=== PATIENT | female | born 1945 | race Caucasian/White ===

== ENCOUNTER → 2018-07-04 12:45 | Outpatient (CLI) | payer MEDICARE, OTHER | END | disposition home or self-care (01) | LOC: D.MRI 12:45 | DX: M54.16 Radiculopathy, lumbar region (principal) ==

== ENCOUNTER 2018-10-20 10:26 | Inpatient (IN) | payer MEDICARE, OTHER ==
[~2018-10-20] VITALS: Ht 157.5 cm; Wt 90.7 kg
--- NOTE | ~2018-10-20 | MORECARE ---
CASE MANAGEMENT DISCHARGE SUMMARY PATIENT: BELKYS MATA UNIT: [id number] ADM DATE: 10/20/18 AGE: 73 : 43 SEX: F ROOM/BED: D.2103 AUTHOR: KIRSTIE BROWN PHYSICIAN: REFERRING PHYSICIAN: MORGAN CACERES MD DATE OF SERVICE: 10/21/18 Discharge Plan Patient Name: BELKYS MATA [facility] [facility] 1945 Planned Disposition: Home Anticipated Discharge Date: 10/22/18 Discharge Date: Expected LOS: 2 Initial Reviewer: [email or web address] Initial Review Date: 10/21/2018 Generated: 10/21/18 5:36 pm Patient Name: BELKYS MATA Page 14440 at 1636 All edits/amendments must be made on the electronic document DICTATION DATE: 10/21/181635 SAT TUTOR: GAURANG 10/21/18 1636 RPT#: [id number] DC DATE: STATUS: ADM IN [facility] [address] [place] [address] END OF REPORT
--- NOTE | ~2018-10-20 | MORECARE ---
CASE MANAGEMENT DISCHARGE SUMMARY PATIENT: BELKYS MATA UNIT: [id number] ADM DATE: 10/20/18 AGE: 73 : 43 SEX: F ROOM/BED: D.2103 AUTHOR: KIRSTIE BROWN PHYSICIAN: REFERRING PHYSICIAN: MORGAN CACERES MD DATE OF SERVICE: 10/21/18 Discharge Plan Patient Name: BELKYS MATA [facility] [facility] 1945 Planned Disposition: Home Anticipated Discharge Date: 10/22/18 Discharge Date: Expected LOS: 2 Initial Reviewer: [email or web address] Initial Review Date: 10/21/2018 Generated: 10/21/18 5:45 pm DCPIA - Discharge Planning Initial Assessment Updated by [email or web address]: Shankar Dave on 10/21/18 4:40 pm * Is the patient Alert and Oriented? Yes * How many steps to enter\exit or inside your home? 4 W/RAIL * PCP DR. CACERES * Pharmacy [facility] * Preadmission Environment Home Alone * ADLs Independent * Equipment Glucometer Other * Other Equipment DIABETIC SHOES PROVIDER: [employer] * List name and contact numbers for known caregivers / representatives who currently or will assist patient after discharge: JUAQUIN GARZA, DTR, * Verbal permission to speak to the caregivers and representatives has been obtained from the patient. Yes * Please name any agencies selected above. NONE * Additional services required to return to the preadmission environment? No * Can the patient safely return to the preadmission environment? Yes * Has this patient been hospitalized within the prior 30 days at any hospital? No Last DP export: 10/21/18 3:36 Patient Name: BELKYS MATA Page [id number] at 1645 All edits/amendments must be made on the electronic document DICTATION DATE: 10/21/181643 GROCERY SHOPPER: GAURANG 10/21/181643 RPT#: [id number] DC DATE: STATUS: ADM IN [facility] [address] [place] [address] END OF REPORT
--- NOTE | ~2018-10-20 | MORECARE ---
CASE MANAGEMENT DISCHARGE SUMMARY PATIENT: BELKYS MATA UNIT: [id number] ADM DATE: 10/21/18 AGE: 73 : 43 SEX: F ROOM/BED: D.2107 AUTHOR: KEVINDOC PHYSICIAN: REFERRING PHYSICIAN: MORGAN CACERES MD DATE OF SERVICE: 10/23/18 Discharge Plan Patient Name: BELKYS MATA Facility[facility]:[place] : 1945 Planned Disposition: Home Anticipated Discharge Date: 10/22/18 Discharge Date: 10/22/2018 Expected LOS: 1 Initial Reviewer: [email or web address] Initial Review Date: 10/21/2018 Generated: 10/23/18 11:00 am Comments DCP- Discharge Planning Updated by [email or web address]: Shankar Dave on 10/21/18 3:[address] Patient Name: BELKYS MATA Admission Status: ER Accout number: [id number] Admission Date: 10-20-2018 : 1945 Admission Diagnosis: Attending: MORGAN HAUSER Current LOS: 1 Anticipated DC Date: 10-22-2018 Planned Disposition: Home Primary Insurance: MEDICARE A & B Discharge Planning Comments: CM RECEIVED REQUEST TO MEET WITH PT AT HER REQUEST REGARING POSSIBLE HOME HEALTH. CM MET WITH PT AND DAUGHTERJUAQUIN, IN ROOM TO DISCUSS DISCHARGE PLANNING AND NEEDS. BELKYS MATA provided verbal consent to discuss current and ongoing needs with/in the presence of: DAUGHTERJUAQUIN. PT REPORTS LIVING AT HOME INDEPENDENTLY AND ALONE. PT HAS GLUCOMETER AND DIABETIC SHOES FROM [employer]. PT HAS NO OUTSIDE SERVICES ASSISTING IN THE HOME. PT'S DAUGHTER ASSISTS WITH TRANSPORTATION AND ERRANDS AND ALSO NEEDED IF PT NEEDS ASSISTANCE AT HOME. PT IS VISUALLY IMPAIRED AND LEGALLY BLIND. PT'S DAUGHTER HAS CONTACTED THE [employer] AND THERE ARE NO SERVICES FOR PT AT HOME. PT AND DAUGHTER ARE LOOKING FOR PERSONAL CARE TO ASSIST WITH LAUNDRY AND DISHES. CM EXPLAINED THAT MEDICARE DOES NOT PAY FOR HOME PERSONAL CARE SERVICES, DISCUSSED MEDICAID ELIGIBILITY AND HOW TO APPLY FOR MEDICAID SERVICES AND THE 45 DAY ESTIMATED PROCESSING TIME FOR DETERMINATION. CM DISCUSSED AVAILABILITY OF HOME HEALTH, REHAB SERVICES AND MEDICAL EQUIPMENT. PT DENIES DISCHARGE NEEDS AND REPORTS SHE DOES NOT NEED ASSISTANCE WITH MEDICATIONS, THERAPY OR AN AIDE TO ASSIST WITH BATHING. PT DOES NOT HAVE A [facility] CARE POLICY TO ASSIST WITH PAYING FOR HOME SERVICES, REPORTS HAVING LIMITED [facility] INCOME. CM PROVIDED PT AND HER DAUGHTER WITH REFERRAL TO "[facility]" [employer] AND PERSONAL CARE PROVIDER INFORMATION FOR [facility]. CM DISCUSSED IMPORTANTANCE OF [facility] CARE PLANNING TO PT SHE LIVES ALONE, [place], IS LEGALLY BLIND AND GETTING OLDER. PT REPORTS UNDERSTANDING. PT REPORTS HER DAUGHTER WILL PICK HER UP FOR DISCHARGE HOME. PT DENIES NEED OF HOME HEALTH SERVICES, IS SEEKING PERSONAL CARE SERVICES, PERSONAL CARE AGENCY INFORMATION PROVIDED. PT PLANS TO DISCHARGE HOME ALONE. FAMILY TO TRANSPORT HOME. CM TO FOLLOW AND ASSIST IF NEEDED. Head Track Coach: Shankar Dave DCPIA - Discharge Planning Initial Assessment Updated by [email or web address]: Shankar Dave on 10/21/18 4:40 pm * Is the patient Alert and Oriented? Yes * How many steps to enter\\exit or inside your home? 4 W/RAIL * PCP DR. CACERES * Pharmacy [facility] * Preadmission Environment Home Alone * ADLs Independent * Equipment Glucometer Other * Other Equipment DIABETIC SHOES PROVIDER: [employer] * List name and contact numbers for known caregivers / representatives who currently or will assist patient after discharge: JUAQUIN GARZA, DTR, * Verbal permission to speak to the caregivers and representatives has been obtained from the patient. Yes * Please name any agencies selected above. NONE * Additional services required to return to the preadmission environment? No * Can the patient safely return to the preadmission environment? Yes * Has this patient been hospitalized within the prior 30 days at any hospital? No Last DP export: 10/21/18 3:53 Patient Name: BELKYS MATA Page [id number] at 1000 All edits/amendments must be made on the electronic document DICTATION DATE: 10/23/18958 BAND SAW MARKER: GAURANG 10/23/18958 RPT#: [id number] DC DATE:10/22/18 STATUS: DIS IN [facility] [address] [facility] [place] [address] END OF REPORT
--- NOTE | ~2018-10-20 | MORECARE ---
CASE MANAGEMENT DISCHARGE SUMMARY PATIENT: BELKYS MATA UNIT: [id number] ADM DATE: 10/20/18 AGE: 73 : 43 SEX: F ROOM/BED: D.2107 AUTHOR: KIRSTIE BROWN PHYSICIAN: REFERRING PHYSICIAN: MORGAN CACERES MD DATE OF SERVICE: 10/21/18 Discharge Plan Patient Name: BELKYS MATA Facility: [facility]:[place] : 1945 Planned Disposition: Home Anticipated Discharge Date: 10/22/18 Discharge Date: Expected LOS: 2 Initial Reviewer: [email or web address] Initial Review Date: 10/21/2018 Generated: 10/21/18 5:53 pm Comments DCP- Discharge Planning Updated by [email or web address]: Shankar Dave on 10/21/18 3:[address] Patient Name: BELKYS MATA Admission Status: ER Accout number: [id number] Admission Date: 10-20-2018 : 1945 Admission Diagnosis: Attending: MORGAN HAUSER Current LOS: 1 Anticipated DC Date: 10-22-2018 Planned Disposition: Home Primary Insurance: MEDICARE A & B Discharge Planning Comments: CM RECEIVED REQUEST TO MEET WITH PT AT HER REQUEST REGARING POSSIBLE HOME HEALTH. CM MET WITH PT AND DAUGHTER, JUAQUIN, IN ROOM TO DISCUSS DISCHARGE PLANNING AND NEEDS. BELKYS MATA provided verbal consent to discuss current and ongoing needs with/in the presence of: DAUGHTERJUAQUIN. PT REPORTS LIVING AT HOME INDEPENDENTLY AND ALONE. PT HAS GLUCOMETER AND DIABETIC SHOES FROM [employer]. PT HAS NO OUTSIDE SERVICES ASSISTING IN THE HOME. PT'S DAUGHTER ASSISTS WITH TRANSPORTATION AND ERRANDS AND ALSO NEEDED IF PT NEEDS ASSISTANCE AT HOME. PT IS VISUALLY IMPAIRED AND LEGALLY BLIND. PT'S DAUGHTER HAS CONTACTED THE STATE [employer]ENC[employer] THE BLIND AND THERE ARE NO SERVICES FOR PT AT HOME. PT AND DAUGHTER ARE LOOKING FOR PERSONAL CARE TO ASSIST WITH LAUNDRY AND DISHES. CM EXPLAINED THAT MEDICARE DOES NOT PAY FOR HOME PERSONAL CARE SERVICES, DISCUSSED MEDICAID ELIGIBILITY AND HOW TO APPLY FOR MEDICAID SERVICES AND THE 45 DAY ESTIMATED PROCESSING TIME FOR DETERMINATION. CM DISCUSSED AVAILABILITY OF HOME HEALTH, REHAB SERVICES AND MEDICAL EQUIPMENT. PT DENIES DISCHARGE NEEDS AND REPORTS SHE DOES NOT NEED ASSISTANCE WITH MEDICATIONS, THERAPY OR AN AIDE TO ASSIST WITH BATHING. PT DOES NOT HAVE A [facility] CARE POLICY TO ASSIST WITH PAYING FOR HOME SERVICES, REPORTS HAVING LIMITED ASSISTED INCOME. CM PROVIDED PT AND HER DAUGHTER WITH REFERRAL TO "[facility]" [employer] AND PERSONAL CARE PROVIDER INFORMATION FOR [facility]. CM DISCUSSED IMPORTANTANCE OF [facility] CARE PLANNING TO PT SHE LIVES ALONE, [place], IS LEGALLY BLIND AND GETTING OLDER. PT REPORTS UNDERSTANDING. PT REPORTS HER DAUGHTER WILL PICK HER UP FOR DISCHARGE HOME. PT DENIES NEED OF HOME HEALTH SERVICES, IS SEEKING PERSONAL CARE SERVICES, PERSONAL CARE AGENCY INFORMATION PROVIDED. PT PLANS TO DISCHARGE HOME ALONE. FAMILY TO TRANSPORT HOME. CM TO FOLLOW AND ASSIST IF NEEDED. Bench Examiner: Shankar Dave DCPIA - Discharge Planning Initial Assessment Updated by [email or web address]: Shankar Dave on 10/21/18 4:40 pm * Is the patient Alert and Oriented? Yes * How many steps to enter\\exit or inside your home? 4 W/RAIL * PCP DR. CACERES * Pharmacy [facility] * Preadmission Environment Home Alone * ADLs Independent * Equipment Glucometer Other * Other Equipment DIABETIC SHOES PROVIDER: [employer] * List name and contact numbers for known caregivers / representatives who currently or will assist patient after discharge: JUAQUIN GARZA, DTR, * Verbal permission to speak to the caregivers and representatives has been obtained from the patient. Yes * Please name any agencies selected above. NONE * Additional services required to return to the preadmission environment? No * Can the patient safely return to the preadmission environment? Yes * Has this patient been hospitalized within the prior 30 days at any hospital? No Last DP export: 10/21/18 3:45 Patient Name: BELKYS MATA Page [id number] at 1653 All edits/amendments must be made on the electronic document DICTATION DATE: 10/21/181651 CODING COMPLIANCE MANAGER: GAURANG 10/21/181651 RPT#: [id number] DC DATE: STATUS: ADM IN [facility] [address] [place] [address] END OF REPORT
[2018-10-20] MEDS ORDERED: GLUCOPHAGE1000 MG PO (10:32)
[2018-10-20] MEDS ORDERED: OXYBUTYNIN CHLOR5 MG PO (10:33)
[2018-10-20] MEDS ORDERED: VASOTEC20 MG PO (10:33)
[2018-10-20] MEDS ORDERED: ZOLOFT50 MG PO (10:33)
[2018-10-20] MEDS ORDERED: FARXIGA10 MG PO (10:34)
[2018-10-20 11:02] VITALS: BP 167/72
[2018-10-20 11:18] LABS: BASOPHILS 0.3 % (0-2); EOSINOPHILS 1.6 % (0-7); HEMATOCRIT 37.3 % (36.0-48.0); HEMOGLOBIN 12.2 g/dL (12-16); IMMATURE GRANULOCYTES 0.4 % (0-5); LYMPHOCYTES 20.4 % (15-50); MCH 30.7 pg (26.0-34.0); MCHC 32.7 g/dL (31.0-37.0); MEAN PLATELET VOLUME 11.1 fL (7.4-10.4); MONOCYTES 5.7 % (2-11); NEUTROPHILS 71.6 % (40-80); PLATELET COUNT 219 10x3/uL (130-400); RBC 3.97 10x6/uL (4.00-5.40); RDW 14.3 % (11.5-14.5); WBC 10.1 10x3/uL (4.8-10.8)
[2018-10-20 11:26] LABS: APTT 27.2 SECONDS (22.8-39.4); INR 0.96 (0.85-1.17); PROTIME 12.3 SECONDS (11.6-15.0)
[2018-10-20 11:33] LABS: ALBUMIN 3.7 g/dL (3.4-5.0); ALKALINE PHOSPHATASE 79 U/L (46-116); ALT (SGPT) 21 U/L (10-68); BILIRUBIN - TOTAL 0.44 mg/dL (0.2-1.3); CALC OSMOLALITY 281 mosm/kg (275-300); CARBON DIOXIDE 24.5 mmol/L (21.0-32.0); CHLORIDE - SERUM 102 mmol/L (98-107); CREATININE - SERUM 1.1 mg/dL (0.6-1.3); GLUCOSE 128 mg/dL (74-106); POTASSIUM - SERUM 4.1 mmol/L (3.5-5.1); PROTEIN - SERUM 7.4 g/dL (6.4-8.2); SODIUM 139 mmol/L (136-145); UREA NITROGEN 18 mg/dL (7-18); eGFR NON AFRICAN AMERICAN 51 mL/min (90-120)
[2018-10-20 11:44] LABS: CKMB 0.7 U/L (0.0-3.6); CREATINE KINASE 62 UL (21-215); MAGNESIUM - SERUM 1.5 mg/dL (1.8-2.4)
[2018-10-20 11:46] LABS: TROPONIN-I < 0.017 ng/mL (0.000-0.060)
[2018-10-20 12:33] LABS: APPEARANCE CLEAR (CLEAR); BILIRUBIN NEGATIVE (NEGATIVE); COLOR YELLOW (YELLOW); EPITHELIAL CELLS 0-5 /hpf (0-5); GLUCOSE 1000 mg/dL (NEGATIVE); KETONE NEGATIVE (NEGATIVE); NITRITE NEGATIVE (NEGATIVE); PROTEIN 2+ mg/dL (NEGATIVE); RED CELLS - URINE NONE SEEN /hpf (0-5); UROBILINOGEN NORMAL (NORMAL); WHITE CELLS - URINE NSEEN /hpf (0-5)
[2018-10-20 15:45] VITALS: BP 132/94
[2018-10-20 17:00] VITALS: BP 135/60
[2018-10-20] MEDS ORDERED: MIRALAX17 GM PO (17:52)
[2018-10-20 18:06] VITALS: BP 155/73; BMI 36.6
[2018-10-21] VITALS: BP 129/66
[2018-10-21 05:51] VITALS: BP 129/55
[2018-10-21 08:58] VITALS: BP 143/57
[2018-10-21 11:39] VITALS: BP 132/64
[2018-10-21 12:34] VITALS: Ht 157.5 cm; Wt 90.7 kg
[2018-10-21 12:59] LABS: HEMATOCRIT 35.3 % (36.0-48.0); HEMOGLOBIN 11.3 g/dL (12-16); MCH 30.3 pg (26.0-34.0); MCV 94.6 fL (80.0-100.0); MEAN PLATELET VOLUME 10.6 fL (7.4-10.4); PLATELET COUNT 184 10x3/uL (130-400); RBC 3.73 10x6/uL (4.00-5.40); RDW 14.4 % (11.5-14.5); WBC 8.9 10x3/uL (4.8-10.8)
[2018-10-21 13:08] LABS: ANION GAP 14.6 mmol/L (8-16); CALCIUM 8.2 mg/dL (8.5-10.1); CARBON DIOXIDE 25.1 mmol/L (21.0-32.0); CREATININE - SERUM 1.1 mg/dL (0.6-1.3); MAGNESIUM - SERUM 1.7 mg/dL (1.8-2.4); POTASSIUM - SERUM 3.7 mmol/L (3.5-5.1)
[2018-10-21 13:10] LABS: BASOPHILS 0.2 % (0-2); EOSINOPHILS 1.6 % (0-7); IMMATURE GRANULOCYTES 0.2 % (0-5); LYMPHOCYTES 20.8 % (15-50); MONOCYTES 5.8 % (2-11); NEUTROPHILS 71.4 % (40-80)
[2018-10-21 15:33] VITALS: BP 126/60
[2018-10-21 20:00] VITALS: BP 147/42
[2018-10-22 05:34] LABS: BASOPHILS 0.3 % (0-2); HEMATOCRIT 35.6 % (36.0-48.0); HEMOGLOBIN 11.4 g/dL (12-16); IMMATURE GRANULOCYTES 0.3 % (0-5); LYMPHOCYTES 23.9 % (15-50); MCV 93.7 fL (80.0-100.0); MEAN PLATELET VOLUME 11.6 fL (7.4-10.4); MONOCYTES 7.2 % (2-11); NEUTROPHILS 66.3 % (40-80); PLATELET COUNT 193 10x3/uL (130-400); RDW 14.4 % (11.5-14.5); WBC 8.6 10x3/uL (4.8-10.8)
[2018-10-22 05:54] LABS: ANION GAP 15.9 mmol/L (8-16); CALCIUM 8.1 mg/dL (8.5-10.1); POTASSIUM - SERUM 3.9 mmol/L (3.5-5.1)
[2018-10-22 08:13] VITALS: BP 148/78
[2018-10-22 11:57] VITALS: BP 144/61
[2018-10-22] MEDS ORDERED: VASOTEC10 MG PO (11:59)
== END 2018-10-22 15:10 | disposition home or self-care (01) | DRG 90 ==
LOC: D.ER 10:26 → D.M2 15:57 → D.EDHOLD 15:57 → OBSVTIME 15:57 → D.M2 16:31
PROVIDERS: Emergency Medicine; Internal Medicine Nephrology
DX: S06.0X0A Concussion without loss of consciousness, initial encounter (principal); R42 Dizziness and giddiness; W18.00XA Striking against unspecified object with subsequent fall, initial encounter; I34.0 Nonrheumatic mitral (valve) insufficiency; K59.09 Other constipation; E11.65 Type 2 diabetes mellitus with hyperglycemia; I10 Essential (primary) hypertension; Z86.73 Personal history of transient ischemic attack (TIA), and cerebral infarction without residual deficits; E83.42 Hypomagnesemia